=== PATIENT | female | born 1930 | race Caucasian/White ===

== ENCOUNTER 2016-12-05 10:38 | Outpatient (CLI) ==
[2014-12-14 07:52] VITALS: BMI 26.4
--- NOTE | 2016-12-05 11:37 | US ---
EXAM: Bilateral carotid artery Doppler History: Right carotid bruit and dizziness. Comparison: Carotid Doppler 07/09/2015 Technique: Multiple sonographic images through the bilateral internal carotid arteries were obtaine d. Color duplex Doppler was used to interrogate vascular flow. Findings: The right ICA peak systolic velocity is within normal limits measuring 1.0 meters per second. The ri ght vertebral artery is patent and demonstrates antegrade flow. Morel scale images demonstrate mild to moderate plaque buildup within the right internal carotid artery. The right ICA/cca PSV ratio is 1.8. The left ICA peak systolic velocities within normal limits measuring 0.7 meters per second. The lef t vertebral artery is patent and demonstrates antegrade flow. Morel scale images demonstrate mild to moderate plaque buildup within the left internal carotid artery. The left ICA/cca PSV ratio is 1.2. Impression: No significant hemodynamic stenosis of the bilateral internal carotid arteries.
== END 2016-12-05 10:39 | disposition home or self-care (01) ==
LOC: RAD 10:38
PROVIDERS: ATTEND Internal Medicine
DX: R09.89 Other specified symptoms and signs involving the circulatory and respiratory systems (principal); R42 Dizziness and giddiness

== ENCOUNTER 2018-01-20 09:05 | Outpatient (CLI) ==
[2014-12-14 07:52] VITALS: BMI 26.4
--- NOTE | 2018-01-20 09:54 | MAMMO ---
EXAM: Bilateral digital diagnostic mammogram (2-D and 3-D) History: Left breast pain. Comparison: Bilateral mammogram 01/23/2015 Findings: MLO and CC views of bilateral breasts demonstrate scattered fibroglandular breast parenchy ma. CAD was reviewed by the radiologist. Tomosynthesis was performed. Stable benign bilateral chata st calcifications. Impression: Although no mammographic abnormalities are identified to correlate with the left breast pain, recommend further evaluation with ultrasound. BIRADS 0
--- NOTE | 2018-01-20 10:20 | US ---
EXAM: Left breast ultrasound. History: Left breast pain. Comparison: Bilateral mammogram 01/20/2018 Technique: Multiple sonographic images through the left breast were obtained. Color duplex Doppler was used to interrogate vascular flow. Findings: No masses, cysts or fluid collections identified. Impression: No sonographic evidence for malignancy. Recommend return to routine screening mammograp hy schedule. BIRADS 2
== END 2018-01-20 09:06 | disposition home or self-care (01) ==
LOC: RAD 09:05
PROVIDERS: ATTEND Internal Medicine
DX: N64.4 Mastodynia (principal)

== ENCOUNTER 2018-07-25 10:57 | Emergency (ER) ==
[2018-07-25 11:06] VITALS: BP 176/84; TEMP 98.1
[2018-07-25 11:19] VITALS: BMI 23.4
[2018-07-25] MEDS ORDERED: LEVAQUIN PO STA (11:40)
--- NOTE | 2018-07-25 11:45 | ED.PDOC ---
General ED Provider: Dr. MAYKEL GREGORIO Chief Complaint: Urinary Problem Stated Complaint: URINARY SYMPTOMS Time Seen by Physician: 11:00 (MAY PRESENT AT ALL TIME ALONG WITH A FAMILY MEMBER ) Mode of Arrival: Wheelchair Information Source: Patient Exam Limitations: No limitations Primary Care Provider: KATHERINE REEVES Nursing and Triage Documentation Reviewed and Agree: Yes Does patient meet sepsis criteria?: No System Inflammatory Response Syndrome: Not Applicable Sepsis Protocol: For patient's 13 years and over: Temp is 96.8 and below OR 101 and greater Pulse >90 BPM Resp >20/minute Acutely Altered Mental Status Are patient's symptoms suggestive of a new infection, such as: -Pneumonia -Skin, Soft Tissue -Endocarditis -UTI -Bone, Joint Infection -Implantable Device -Acute Abdominal Infection -Wound Infection -Meningitis -Blood Stream Catheter Infection -Unknown Complaint Exam - Complaint/Exam Patient Complains of: Reports: Dysuria Symptoms Are: Still present Initial Severity: Mild Current Severity: None Location of Pain: Reports: None Character: Reports: Dull Aggravating: Reports: None Alleviating: Reports: None Associated Signs and Symptoms: Reports: Dysuria. Denies: Diaphoresis, Back pain , Fever, Hematuria, Constipation, Blood in stool, Rectal pain, Appetite change, Nausea, Vomiting, Decreased urine output, Increased urine frequency, Increased thirst, Decreased activity, Lethargy, Abdominal Pain, Bubble bath use, Vaginal bleeding, Vaginal discharge, Genital swelling, Genital blisters, Retained foreign body Review of Systems - Review Of Systems Constitutional: Reports: No symptoms Eyes: Reports: No symptoms Ears, Nose, Mouth, Throat: Reports: No symptoms Respiratory: Reports: No symptoms Cardiac: Reports: No symptoms GI: Reports: No symptoms : Reports: Dysuria Musculoskeletal: Reports: No symptoms Skin: Reports: No symptoms Neurological: Reports: No symptoms Endocrine: Reports: No symptoms Hematologic/Lymphatic: Reports: No symptoms All Other Systems: Reviewed and Negative Past Medical History - Past Medical History Previously Healthy: Yes Endocrine: Reports: None Cardiovascular: Reports: None Respiratory: Reports: None Hematological: Reports: None Gastrointestinal: Reports: None Genitourinary: Reports: None Neuro/Psych: Reports: None Musculoskeletal: Reports: None Cancer: Reports: None Last Menstrual Period: none - Surgical History General Surgical History: Reports: None - Family History Family History: Reports: None - Social History Smoking Status: Never smoker Hx Substance Use: No Alcohol Screening: None Physical Exam - Physical Exam Appearance: Well-appearing, No pain distress, Well-nourished Eyes: MARLENE, EOMI, Conjunctiva clear ENT: Ears normal, Nose normal, Oropharynx normal Respiratory: Airway patent, Breath sounds clear, Breath sounds equal, Respirations nonlabored Cardiovascular: RRR, Pulses normal, No rub, No murmur GI/: Soft, Nontender, No masses, Bowel sounds normal, No Organomegaly Musculoskeletal: Normal strength, ROM intact, No edema, No calf tenderness Skin: Warm, Dry, Normal color Neurological: Sensation intact, Motor intact, Reflexes intact, Cranial nerves intact, Alert, Oriented Psychiatric: Affect appropriate, Mood appropriate Critical Care Note - Critical Care Note Total Time (mins): 0 Course - Course Orders, Labs, Meds: Lab Review 07/25/18 11:15 Urine Color [place] Urine Clarity Clear Urine pH 7.0 Ur Specific [place] 1.010 Urine Protein Negative Urine Glucose (UA) Trace Urine Ketones Negative Urine Blood Negative Urine Nitrite Positive Urine Bilirubin Negative Urine Urobilinogen 1.0 Ur Leukocyte Esterase Trace Urine Microscopic RBC 0-2 Urine Microscopic WBC 5-10 Ur Squamous Epith Cells 0-2 Ur Renal Epithelial Cell 0-2 Urine Bacteria 3+ Orders Category Date Time Status URINALYSIS C & S IF INDICATED Stat LAB 07/25/18 11:15 Completed URINE CULTURE Stat LAB 07/25/18 11:38 Received Levofloxacin [Levaquin] MEDS 07/25/18 11:40 Stat 500 mg PO ONCE STA Medications Discontinued Medications Generic Name Dose Route Start Last Admin Trade Name Freq PRN Reason Stop Dose Admin Levofloxacin 500 mg 07/25/18 11:40 Levaquin PO 07/25/18 11:41 ONCE STA Vital Signs: Temp Pulse Resp BP Pulse Ox 07/25/18 10:57 98.1 F 73 18 176/84 H 97 Departure - Departure Time of Disposition: 11:45 Disposition: HOME SELF-CARE Discharge Problem: Urinary tract infectious disease, Urinary symptoms Instructions: Urinary Tract Infection in Women (ED) Condition: Good Pt referred to PMD for follow-up: Yes IPMP verified?: No Additional Instructions: Please call your Family Physician as soon as possible to schedule a follow-up appointment. Allergies/Adverse Reactions: Allergies No Known Allergies Allergy (Verified 07/25/18 11:07) Home Medications: Ambulatory Orders Estrogens, Conjugated [Premarin Vaginal Cream] 1 applic VG 2 TIMES PER WEEK
== END 2018-07-25 12:32 | disposition home or self-care (01) ==
LOC: ED 10:57
DX: R39.9 Unspecified symptoms and signs involving the genitourinary system (principal); R30.0 Dysuria; N39.0 Urinary tract infection, site not specified
CPT/HCPCS: 81001; 87086; 87186; 99283